=== PATIENT | female | born 1995 | race Caucasian/White ===

== ENCOUNTER 2017-02-19 16:55 | Emergency (ER) | payer SELFPAY ==
[~2017-02-19] VITALS: Ht 170.2 cm; Wt 59.0 kg
[2017-02-19 17:26] LABS: BASO % 1 % (0-3); EOS % 1 % (0-3); HEMATOCRIT 36.9 % (36.0-47.0); HEMOGLOBIN 11.8 g/dL (12.0-15.5); LYMPH # 1.6 x10^3/uL (1.0-4.8); LYMPH % 42 % (24-48); MEAN CORPUSCULAR HEMOGLOBIN 23 pg (25-35); MEAN CORPUSCULAR HGB CONC 32 g/dL (31-37); MEAN CORPUSCULAR VOLUME 73 fL (79-100); MONO # 0.3 x10^3/uL (0.0-1.1); MONO % 7 % (0-9); NEUT # 1.8 x10^3uL (1.8-7.7); NEUT % 49 % (31-73); PLATELET COUNT 331 x10^3/uL (140-400); RED BLOOD COUNT 5.08 x10^6/uL (3.50-5.40); RED CELL DISTRIBUTION WIDTH 17.8 % (11.5-14.5); WHITE BLOOD COUNT 3.8 x10^3/uL (4.0-11.0)
[2017-02-19 17:35] LABS: PREG TEST PT QUAL NEGATIVE (NEG)
[2017-02-19 17:37] LABS: ACETAMIN < 2.0 mcg/mL (10-30); ETHANOL < 10 mg/dL (0-10)
[2017-02-19 17:39] LABS: ALBUMIN 4.3 g/dL (3.4-5.0); ALBUMIN/GLOBULIN RATIO 1.2 (1.0-1.7); AMPHETAMINE/METHAMPHETAMINE POS (NEG); BARBITURATES NEG (NEG); BENZODIAZEPINES NEG (NEG); CANNABINOIDS POS (NEG); COCAINE NEG (NEG); CREATININE 0.9 mg/dL (0.6-1.0); GFR 80.7; METHADONE NEG (NEG); OPIATES NEG (NEG); PHENCYCLIDINE NEG (NEG); POTASSIUM 3.4 mmol/L (3.5-5.1); TOTAL BILIRUBIN 0.4 mg/dL (0.2-1.0)
--- NOTE | 2017-02-19 17:57 | ED.ADGEN ---
Past History Past Medical History: Anxiety, Depression, TB, Other Past Surgical History: Other Alcohol Use: Occasionally Drug Use: Methamphetamine Adult General Chief Complaint Chief Complaint SI HPI HPI Patient is a 20-year-old female with history of depression, anxiety presents with suicidal ideation with plan on overdosing on her mother's prescription medications. Patient has long-standing history of depression. She is not currently in therapy has taken herself off her antidepressants one month ago. Patient reports regular drug use. She smokes marijuana and methamphetamines 2 weeks ago. Patient also has multiple superficial abrasions over left forearm and has history of self-mutilation. Denies acute suicidal gesture or attempt. HI , paranoia, hallucinations or delusions. Patient has received mental health care at the [facility]. Review of Systems Review of Systems ROS as per [facility] Allergies Allergies Allergies Coded Allergies Type Severity Reaction Last Updated Verified No Known Drug Allergies 02/19/17 No Physical Exam Physical Exam Constitutional: Well developed, well nourished, no acute distress, non-toxic appearance. HENT: Normocephalic, atraumatic, bilateral external ears normal, oropharynx moist, no oral exudates, nose normal. Eyes: PERRLA, EOMI, conjunctiva normal. Neck: Normal range of motion, no tenderness. Cardiovascular:Heart rate regular rhythm, no murmur. Lungs & Thorax: Bilateral breath sounds clear to auscultation. Abdomen: Bowel sounds normal, soft, no tenderness. Skin: Warm, dry, no erythema, no rash. Back: No tendernes. Extremities: No tenderness. Neurologic: Alert and oriented X 3, normal motor function. Psychologic: Affect and affect, positive SI, no HI, delusions hallucination or paranoia. Current Patient Data Vital Signs Vital Signs Date Time Temp Pulse Resp B/P (MAP) Pulse Ox O2 Delivery O2 Flow Rate FiO2 02/19/17 16:56 98.4 119 18 96 Room Air Lab Results Laboratory Tests Test 02/19/17 17:05 White Blood Count 3.8 x10^3/uL (4.0-11.0) L Red Blood Count 5.08 x10^6/uL (3.50-5.40) Hemoglobin 11.8 g/dL (12.0-15.5) L Hematocrit 36.9 % (36.0-47.0) Mean Corpuscular Volume 73 fL (79-100) L Mean Corpuscular Hemoglobin 23 pg (25-35) L Mean Corpuscular Hemoglobin Concent 32 g/dL (31-37) Red Cell Distribution Width 17.8 % (11.5-14.5) H Platelet Count 331 x10^3/uL (140-400) Neutrophils (%) (Auto) 49 % (31-73) Lymphocytes (%) (Auto) 42 % (24-48) Monocytes (%) (Auto) 7 % (0-9) Eosinophils (%) (Auto) 1 % (0-3) Basophils (%) (Auto) 1 % (0-3) Neutrophils # (Auto) 1.8 x10^3uL (1.8-7.7) Lymphocytes # (Auto) 1.6 x10^3/uL (1.0-4.8) Monocytes # (Auto) 0.3 x10^3/uL (0.0-1.1) Eosinophils # (Auto) 0.0 x10^3/uL (0.0-0.7) Basophils # (Auto) 0.0 x10^3/uL (0.0-0.2) Sodium Level 140 mmol/L (136-145) Potassium Level 3.4 mmol/L (3.5-5.1) L Chloride Level 107 mmol/L (98-107) Carbon Dioxide Level 26 mmol/L (21-32) Anion Gap 7 (6-14) Blood Urea Nitrogen 13 mg/dL (7-20) Creatinine 0.9 mg/dL (0.6-1.0) Estimated GFR (Cockcroft-Gault) 80.7 BUN/Creatinine Ratio 14 (6-20) Glucose Level 114 mg/dL (70-99) H Calcium Level 9.0 mg/dL (8.5-10.1) Total Bilirubin 0.4 mg/dL (0.2-1.0) Aspartate Amino Transferase (AST) 25 U/L (15-37) Alanine Aminotransferase (ALT) 22 U/L (14-59) Alkaline Phosphatase 80 U/L (46-116) Total Protein 8.0 g/dL (6.4-8.2) Albumin 4.3 g/dL (3.4-5.0) Albumin/Globulin Ratio 1.2 (1.0-1.7) Serum Test, Qualitative Negative (NEG) Urine Opiates Screen Neg (NEG) Urine Methadone Screen Neg (NEG) Acetaminophen Level < 2.0 mcg/mL (10-30) L Acetaminophen Last Dose Date Unknown Acetaminophen Last Dose Time Unknown Urine Barbiturates Neg (NEG) Urine Phencyclidine Screen Neg (NEG) Urine Amphetamine/Methamphetamine Pos (NEG) Urine Benzodiazepines Screen Neg (NEG) Urine Cocaine Screen Neg (NEG) Urine Cannabinoids Screen Pos (NEG) Ethyl Alcohol Level < 10 mg/dL (0-10) Urine Ethyl Alcohol Neg (NEG) EKG EKG [EKG: Normal sinus rhythm, rate 86, no acute ST-T wave changes.] Radiology/Procedures Radiology/Procedures [] Course & Med Decision Making Course & Med Decision Making Pertinent Labs and Imaging studies reviewed. (See chart for details) [Psychiatric screening exam pending. Pending. Care turned over to oncoming ERP at 1800.] Final Impression Final Impression [1. SI 2. Polysubstance abuse] Problems: Dragon Disclaimer Dragon Disclaimer This electronic medical record was generated, in whole or in part, using a voice recognition dictation system. DARI BAH DO Feb 19, 2017 17:57
--- NOTE | 2017-02-19 17:59 | EKG ---
[address] [address] Test Date: 2017-02-19 Test Time: 17:25:55 Pat Name: MALENA HELTON Department: Room: Gender: F Insurance Law Specialist: : 1995 Requested By: DARI BAH Order Number: [id number] Reading MD: Hussein Rodríguez Measurements Intervals [place] Rate: 86 P: 62 GA: 168 QRS: 36 QRSD: 92 T: 22 QT: 360 QTc: 434 Interpretive Statements SINUS RHYTHM Electronically Signed On 02-20-2017 9:42:56 CDT by Hussein Rodríguez
[2017-02-19 22:20] VITALS: BP 104/57
== END 2017-02-19 22:20 ==
LOC: ER 16:55 → EDBD 16:55 → ER 22:20
DX: R45.851 Suicidal ideations (principal); F19.10 Other psychoactive substance abuse, uncomplicated; F32.9 Major depressive disorder, single episode, unspecified; F41.9 Anxiety disorder, unspecified; F15.10 Other stimulant abuse, uncomplicated
CPT/HCPCS: 36415; 80053; 80305; 84703; 85027; 93005; 99285; G0480; G0481